=== PATIENT | male | born 1985 | race African-American/Black ===

== ENCOUNTER 2017-04-05 20:29 | Emergency (ER) | payer SELFPAY ==
[2017-04-05] MEDS ORDERED: Ondansetron ODT 8 MG TAB ONE (21:57)
[2017-04-05 22:12] LABS: Hematocrit 40.3 % (42.0-52.0); Mean Platelet Volume 9.1 fL (7.4-10.4); White Blood Cell (WBC) Count 4.6 thou/uL (4.8-10.8)
[2017-04-05 22:28] LABS: Anion Gap 13 mmol/L (10-20); BUN (Urea Nitrogen) 12 mg/dL (8.9-20.6); Calc. Creatinine Clearance 0 mL/min (70-130); Calcium 8.6 mg/dL (7.8-10.44); Carbon Dioxide 24 mmol/L (22-29); Chloride 105 mmol/L (98-107); Estimated GFR-MDRD Greater than 90
[2017-04-05 22:29] LABS: Neutrophil 31 % (42-75); Reactive Lymphocytes 2 % (0-10)
[2017-04-05 23:03] LABS: Bilirubin Negative (Negative); Blood, Urine Negative (Negative); Glucose, Urine (Dipstick) Negative (Negative); Ketone, Urine Negative (Negative); Nitrite Negative (Negative); Protein, Urine (Dipstick) Negative (Neg-Trace)
[2017-04-05 23:12] LABS: Amphetamine Not Detected (NotDetected); Methadone Not Detected (NotDetected); Methamphetamine Not Detected (NotDetected)
== END 2017-04-05 23:15 | disposition home or self-care (01) ==
LOC: ERS 20:29
DX: J06.9 Acute upper respiratory infection, unspecified (principal); F17.210 Nicotine dependence, cigarettes, uncomplicated
CPT/HCPCS: 80048; 80306; 81003; 85025; 87081; 87430; 99283

== ENCOUNTER 2020-01-06 14:57 | Emergency (ER) | payer SELFPAY ==
--- NOTE | 2020-01-06 15:22 | RAD ---
RIGHT ANKLE RADIOGRAPHS THREE VIEWS: 01/06/20 PROVIDED CLINICAL HISTORY: Pain status post injury. FINDINGS: There is a small focus of ossification at the dorsal margin of the talar neck on the lateral view edward t could reflect age indeterminate capsular avulsion fracture. No additional potential fracture is jeronimo ntified. Alignment appears anatomic. Joint spaces appear preserved. IMPRESSION: Possible age indeterminate dorsal capsular avulsion fracture at the talar neck. POS: [facility]
[2020-01-06] MEDS ORDERED: Ibuprofen 200 MG TAB ONE (15:51)
== END 2020-01-06 16:04 | disposition home or self-care (01) ==
LOC: ERS 14:57
DX: S93.401A Sprain of unspecified ligament of right ankle, initial encounter (principal); F17.210 Nicotine dependence, cigarettes, uncomplicated; X58.XXXA Exposure to other specified factors, initial encounter; Y92.89 Other specified places as the place of occurrence of the external cause

== ENCOUNTER 2021-07-07 14:25 | Emergency (ER) | payer SELFPAY ==
[2021-07-08 14:56] LABS: SARS-CoV-2 PCR by NAA DETECTED (NotDetected)
== END 2021-07-07 17:58 | disposition home or self-care (01) ==
LOC: ERS 14:25
DX: U07.1 COVID-19 (principal); F17.210 Nicotine dependence, cigarettes, uncomplicated
CPT/HCPCS: 99283; U0003; U0005